=== PATIENT | female | born 1990 | race Two or more races ===

== ENCOUNTER 2024-08-22 11:19 | Emergency (ER) | payer BC, SELFPAY ==
--- NOTE | 2024-08-22 11:46 | XR_ITS ---
Examination: CT abdomen and pelvis without contrast. Coronal 3-D reconstructions. Sagittal 2-D reconstructions. Date and time of exam:August 22, 2024 1404 hours INDICATIONS: Right-sided flank pain beginning 3 days ago CTDI: vol (mGy): 7.79 DLP: (mGycm): 403 Technique: Axial images of the abdomen have been obtained, 3 mm slice thickness Intravenous contrast material has not been administered. Low dose protocols were performed. One or more of the following dose reduction techniques were used; automated exposure control, adjustment of the mA and/or KV according to patient size, use of iterative reconstruction technique. Findings: 21 mm low-density right lobe liver lesion image 66 No gallstones Spleen not enlarged No pancreatic or adrenal mass No renal or ureteral calculi, no hydronephrosis Normal appendix No bowel obstruction Anteverted uterus Mild free fluid in the pelvis Left adnexal mass containing a small area of fat, the mass measuring 3.4 cm IMPRESSION: 21 mm low-density right lobe liver lesion, recommend hepatobiliary sonography follow-up No renal or ureteral calculi, no hydronephrosis Fat-containing left adnexal mass 3.4 cm with mild free fluid in the pelvis, recommend pelvic sonography follow-up
[2024-08-22 11:48] VITALS: BP 132/84; PULSE 87; RESP 17; TEMP 37.1; O2SAT 99; BMI 24.3
[2024-08-22 12:24] LABS: Basophils % (Auto) 0 % (0-2.5); Eosinophils # (Auto) 0.1 Thou/mm3 (0.0-0.5); Eosinophils % (Auto) 1 % (0-10); Hematocrit 39.8 % (36.0-46.0); Hemoglobin 13.4 g/dL (12.0-16.0); Immature Granulocytes % (Auto) 0 % (0-0); Immature Granulocytes Auto 0.01 Thou/mm3 (0.00-0.00); Lymphocytes % (Auto) 30 % (10-50); Mean Corpuscular HGB Conc 33.7 g/dl (31.0-37.0); Mean Corpuscular Hemoglobin 30.3 pg (25.0-35.0); Mean Corpuscular Volume 90 fL (80-100); Monocytes # (Auto) 0.4 Thou/mm3 (0.0-0.8); Monocytes % (Auto) 6 % (0-12); Neutrophils # (Auto) 4.2 Thou/mm3 (1.8-7.7); Neutrophils % (Auto) 63 % (37-80); Nucleated Red Blood Cell % 0 /100 WBC (0); Platelet Count 319 Thou/mm3 (140-440); RDW Standard Deviation 50.6 fL (36.4-46.3); Red Blood Count 4.42 Miln/mm3 (4.00-5.20); White Blood Count 6.8 Thou/mm3 (3.6-11.0)
[2024-08-22 12:33] LABS: Alanine Aminotransferase 15 U/L (10-49); Albumin, Serum 4.9 gm/dL (3.5-5.0); Albumin/Globulin Ratio 1.9 (1.2-2.2); Alkaline Phosphatase 54 U/L (46-116); Anion Gap 7 (7-16); Aspartate Amino Transferase 20 U/L (0-34); BUN/Creatinine Ratio 8 Ratio (12-20); Bilirubin,Total 0.5 mg/dL (0.3-1.2); Blood Urea Nitrogen 6 mg/dL (9-23); Calcium 9.6 mg/dL (8.3-10.6); Calcium (Corrected) 9.6 mg/dL (8.5-10.1); Carbon Dioxide 26.7 mMol/L (20.0-31.0); Chloride 104 mMol/L (98-107); Creatinine (Component) 0.8 mg/dL (0.6-1.3); Estimated Creatinine Clearance 88.3 mL/min (>60); Globulin 2.6 gm/dL (2.3-3.5); Glucose 96 mg/dL (74-106); Lipase 39 U/L (12-53); Osmolality,Calculated 273 (275-295); Potassium 4.1 mMol/L (3.4-5.1); Sodium 138 mMol/L (136-145); Total Protein 7.5 gm/dL (5.7-8.2); eGFR > 60 See Note
[2024-08-22 12:35] LABS: Collection Type, Urine Clean Catch
[2024-08-22 13:04] LABS: HCG Qualitative,Urine Negative
[2024-08-22 13:08] LABS: Bilirubin,Urine Negative (Negative); Blood,Urine 2+ (Negative); Color,Urine Yellow (Lt Yel-Yel); Glucose, Urine Negative (Negative); Ketones,Urine Negative (Negative); Leukocyte Esterase,Urine Positive (Negative); Nitrite,Urine Negative (Negative); PH,Urine 7.5 (5.0-7.0); Protein,Urine Negative (Neg - Trace); RBC,Urine 13 /hpf (0-3); Specific Gravity,Urine 1.007 (1.001-1.035); Squamous Epithelial Cell,Urine 3 /hpf (0-5); Urobilinogen,Urine Negative mg/dL (0.0-1.0); WBC,Urine 37 /hpf (0-5)
[2024-08-22 13:26] LABS: Clarity,Urine Hazy (Clear/Hazy); Culture Indicated,Urine Yes
--- NOTE | 2024-08-22 14:26 | XR_ITS ---
Examination: Abdomen sonogram, Limited Date and time of exam: August 22, 2024 1507 hrs. Indications: Onset pelvic pain today, focal liver lesion on CT examination of the abdomen today Technique: Real-time celeste scale transabdominal sonographic images of the upper abdomen obtained. Findings: Normal gallbladder Normal common bile duct 0.2 cm Pancreatic head 2.3 cm Liver 9.7 cm smooth contour hyperechoic mass 22 mm Normal hepatopedal portal venous flow Patent IVC Impression: Normal gallbladder Small probable liver hemangioma, recommend 3 month follow-up hepatobiliary sonography
--- NOTE | 2024-08-22 14:26 | XR_ITS ---
Examination: Pelvic ultrasound, transabdominal, complete Technique: Transabdominal ultrasound of the pelvis performed using grayscale imaging Date and time of exam: August 22, 2024 1450 hrs. Indications: Onset pelvic pain today Findings: Uterus 10.0 x 6.3 x 6.9 cm Endometrial stripe 2.7 cm No intrauterine gestation or uterine mass Right ovary 3.1 x 2.6 cm arterial flow Left ovary 3.5 x 3.0 cm arterial flow, solid left ovarian mass 3.1 x 3.4 x 3.3 cm Impression: Thickened endometrium Solid vascular left ovarian mass, consider early ovarian tumor, complex cyst Recommend short-term follow-up transvaginal pelvic sonography
--- NOTE | 2024-08-22 16:55 | PRELIM_ITS ---
Right upper quadrant abdominal ultrasound. August 22, 2024 at 1507 hours Clinical history: Possible liver lesion.Technique: Grayscale and color flow images of the right upper quadrant are provided. He patic and portal veins were also imaged with color flow images.Comparison: No prior study is availabl e for comparison. Findings:The liver appears to demonstrate heterogeneous echotexture. There is a hyp erechoic lesion within the right lobe of the liver without vascularity, measuring 1.8 x 1.8 x 2.2 cm. No intrahepatic biliary ductal dilatation. The main portal vein is patent and demonstrates hepatopet al flow. No gallbladder calculus, wall thickening or pericholecystic fluid is demonstrated. Sonograph ic Yañez sign is negative as per the technologist's note. The common bile duct is normal in caliber at 2.4 mm. The pancreas is unremarkable to the extent visualized (limited evaluation due to bowel gas shadowing). The visualized inferior vena cava is patent.Impression:1. Heterogeneous echotexture of t he liver, which may be related to fatty infiltration/ hepatic parenchymal disease.2. Hyperechoic lesi on within the liver as described, which may represent a hemangioma.3. No sonographic evidence of chol elithiasis, acute cholecystitis or biliary obstruction. Report Electronically Signed By: Rohan Lawrence 08/22/2024 4:54:38 PM [EST]
--- NOTE | 2024-08-22 17:56 | PD.EDFMALE ---
ED Female Urogenital RME/HPI General Chief complaint: Urogenital-Female Stated complaint: RIGHT FLANK PAIN x 2 DAYS Time Seen by Provider: 08/22/24 11:27 Arrival date/time: 08/22/24 11:19 33-year-old female with history of anemia presents the emergency department complains of right flank pain ongoing for the last 2 days patient ports no chest pain shortness of breath headache dizziness weakness Limitations: no limitations Related Data Home Medications ?Medication ?Instructions ?Recorded ?Confirmed folic acid 0.8 mg capsule 0.8 mg PO QDAY 10/25/18 10/25/18 vitamins-iron fumarate 27 1 tab PO QDAY 10/25/18 10/25/18 mg iron-folic acid 0.8 mg tablet ( Vitamin) Previous Rx's ?Medication ?Instructions ?Recorded psyllium 1 tbsp PO QDAY #300 grams 06/03/22 ciprofloxacin HCl 500 mg tablet 500 mg PO BID 7 days #14 tabs 08/22/24 ibuprofen 600 mg tablet 600 mg PO Q6H #30 tabs 08/22/24 Allergies Allergy/AdvReac Type Severity Reaction Status Date / Time No Known Allergies Allergy Unverified 08/22/24 11:21 Review of Systems Review of Systems Systems Reviewed: All systems reviewed, normal except as documented Constitutional Constitutional: Reports system reviewed and no additional complaints, except as documented, Denies fever(s) and Denies headache(s) Eyes Eyes: Reports system reviewed and no additional complaints, except as documented and Denies blurry vision ENT Ears, Nose, Mouth, and Throat: Reports system reviewed and no additional complaints, except as documented, Denies headache(s), Denies nasal congestion and Denies nasal discharge Cardiovascular Cardiovascular: Reports system reviewed and no additional complaints, except as documented, Denies chest pain and Denies dyspnea Respiratory Respiratory: Reports system reviewed and no additional complaints, except as documented, Denies chest congestion, Denies cough and Denies dyspnea Gastrointestinal Gastrointestinal: Reports system reviewed and no additional complaints, except as documented and Denies abdominal pain Genitourinary Genitourinary: Reports system reviewed and no additional complaints, except as documented and Reports other (Right flank pain, dysuria) Integumentary/Breasts Skin/Breast: Reports system reviewed and no additional complaints, except as documented and Denies rash Neurologic Neurologic: Reports system reviewed and no additional complaints, except as documented, Reports as per HPI and Denies headache(s) Past Medical History Past Medical History NEUROLOGIC: Negative Neurological Disorders CARDIAC: Negative Cardiac Disorders or Congestive Heart Failure RESPIRATORY: Negative Chronic Obstructive Pulmonary Disease (COPD) GASTROINTESTINAL: Negative Gastrointestinal Disorders GENITOURINARY: Negative Genitourinary Disorders or Renal Disease REPRODUCTIVE: Negative Breast Cancer or Pelvic Inflammatory Disease MUSCULOSKELETAL: Negative Musculoskeletal Disorders ENDOCRINE: Negative Endocrine Disorders, Diabetes Mellitus Type 1 or Diabetes Mellitus Type 2 HEMATOLOGIC: Negative Blood Disorders OTHER HISTORY: Negative Hospitalization, Autoimmune Disease, Developmental Delay, Falls, Blood Transfusions, Blood Transfusion Reaction, Anesthesia Reactions, Organ Transplant, Chemotherapy, Hyperbaric Therapy, Human Immunodeficiency Virus (HIV), Clostridium Difficile or Breast Cancer Family History FAMILY HISTORY: Positive Family Psychiatric Problems (BROTHER- HOMELESS) and Family Cardiac Disorders (mother HTN); Negative Family Respiratory Disorders, Family Gastrointestinal Problems, Family Cancer, Family Surgery or Family Anesthesia Reaction Surgical History SURGICAL: Negative Cardiac Surgery, Endocrine Surgery, Ear Surgery, Abdominal Surgery, Joint Replacement, Mastectomy, Section or Organ Transplant Social History SMOKING STATUS: Never smoker ED Exam General Limitations: Present no limitations General appearance: Present alert and in no apparent distress Head Head exam: Present atraumatic Eye Eye exam: Present normal appearance, PERRL and EOMI; Absent conjunctival injection ENT ENT exam: Present normal exam, normal oropharynx and mucous membranes moist Neck Neck exam: Present normal inspection, full ROM and trachea midline Chest Chest inspection: Present normal inspection and symmetric chest wall rise Respiratory Respiratory exam: Present normal lung sounds bilaterally; Absent respiratory distress Cardiovascular Cardiovascular exam: Present regular rate, normal rhythm and normal heart sounds Abdominal Exam Abdominal exam: Present soft and normal bowel sounds; Absent distention, tenderness, guarding, rebound, rigidity, Yañez's sign, Rovsing's sign or tenderness at McBurney's Point Abdominal tenderness: Absent RUQ or RLQ Extremities Exam Extremities exam: Present normal inspection and full ROM Back Exam Back exam: Present normal inspection and full ROM Neurological Exam Neurological exam: Present alert, oriented X3 and CN II-XII intact Psychiatric Psychiatric exam: Present normal affect and normal mood Skin Skin exam: Present warm, dry, intact and normal color Course Quality Measures none Orders Category Date Time Status CT abdomen pelvis wo con Stat Exams 08/22/24 11:46 Completed US gall bladder Stat Exams 08/22/24 14:26 Completed US pelvic complete Stat Exams 08/22/24 14:26 Completed CBC Stat Lab 08/22/24 11:53 Completed Comprehensive Metabolic Panel Stat Lab 08/22/24 11:53 Completed HCG Qualitative,Urine Stat Lab 08/22/24 12:00 Completed Lipase Stat Lab 08/22/24 11:53 Completed UA, C/S IF [Urinalysis, C/S if Indicated] Stat Lab 08/22/24 12:00 Completed Urine Culture Stat Lab 08/22/24 12:00 Received Vital Signs Vital signs: Vital Signs Temperature 98.8 F 08/22/24 11:48 Pulse Rate 87 08/22/24 11:48 Respiratory Rate 17 08/22/24 11:48 Blood Pressure 132/84 H 08/22/24 11:48 Pulse Oximetry (%) 99 08/22/24 11:48 Oxygen Delivery Method Room Air 08/22/24 11:48 O2 saturation 99% on room air within normal limits Urogenital - Female MDM Narrative MDM Narrative:: 33-year-old female with history of anemia presents the emergency department complains of right flank pain ongoing for the last 2 days patient ports no chest pain shortness of breath headache dizziness weakness On exam patient does not appear ill or toxic patient's not appear in acute distress Lab work as well as CT scan obtained Lab work is unremarkable CT scan reviewed based on the patient's CT scan ultrasound was ordered I reviewed the patient's CT as well as ultrasound with her gave her copy of her ultrasound reports range her PCP for further evaluation have outpatient MRI of her liver and further follow-up with 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 Patient discharged home in no distress to follow-up with primary care doctor in the next 24 to 48 hours and for any worsening symptoms to return to the ER immediately Patient data External records reviewed:: [facility] previous records Clinical information provided by:: patient Social determinants that could affect healthcare access:: none Patient has the following chronic illnesses:: anemia How is presenting disease/condition affected by chronic disease/condition?: no chronic disease Evaluation data The following diagnostics were reviewed and interpreted by me:: lab results and radiology exam(s) Lab and/or radiology exams considered but not ordered:: Labs radiology obtained Interpretation Summary: Reviewed by me Medications / Prescriptions Medications or Prescriptions considered but not ordered:: Given Medication administrations:: Given Consultations Consultation(s) initiated? (list below): No Diagnosis Urogenital Female Differential Diagnosis: urinary tract infection, cervicitis and vaginitis Most likely diagnosis given after review of the tests above:: UTI, ovarian cyst, liver lesion Admission Indicated Admission indicated?: not indicated Admission Request Was there a request for admission?: No Disposition Plan Disposition Plan: Discharge Discharge Attestation Discharge Attestation: The patient and all family members were given an opportunity to ask questions and understood the discharge instructions. Discharge instructions specifically effects, indications for sooner follow up or return to the emergency department, and the expected course of current diagnosis. Patient condition: Stable Discharge Plan Plan Patient Disposition: HOME (Self Care) Disposition Comment: Stable Prescriptions/Referrals Prescriptions/Med Rec: New ciprofloxacin HCl 500 mg tablet 500 mg PO BID 7 Days Qty: 14 0RF ibuprofen 600 mg tablet 600 mg PO Q6H Qty: 30 0RF No Action vit-iron fum-folic ac [ Vitamin] 27 mg iron- 0.8 mg Tablet 1 tab PO QDAY folic acid 0.8 mg Capsule 0.8 mg PO QDAY psyllium Powder 1 tbsp PO QDAY Qty: 300 0RF Rx Instructions: mix into at least 8 oz of water or juice before administering Referrals: Atif Ragland MD [Primary Care Provider] - 08/23/24 Problem List Clinical Impression: UTI (urinary tract infection), Ovarian cyst, Lesion of liver Patient/Caregiver Discharge Instructions Education Materials: Ovarian Cysts Additional Instructions: Please follow up with your primary care doctor in the next 24-48hrs for any worsening symptoms return here immediately Please bring copy of ultrasound reports your PCP for further evaluation and referral Print Language: Tamazight Stand Alone Forms: Pamela Award Info., Patient Portal Info Letter JOSE D/ALOK Supervising Physician JOSE D/ALOK Supervising Physician: Dr Ramos
== END 2024-08-22 18:47 | disposition home or self-care (01) ==
PROVIDERS: Nurse Practitioner Primary Care; Emergency Provider Emergency Medicine; PCP Internal Medicine
DX: N39.0 Urinary tract infection, site not specified (principal); N83.202 Unspecified ovarian cyst, left side; K76.9 Liver disease, unspecified
CPT/HCPCS: 36415; 74176; 76705; 76856; 80053; 81001; 81025; 83690; 85025; 87077; 87086; 87186; 99284

== ENCOUNTER → 2024-09-07 | Outpatient (CLI) | payer BC, SELFPAY ==
[2024-09-07 11:29] LABS: Basophils % (Auto) 1 % (0-2.5); Eosinophils % (Auto) 0 % (0-10); Hematocrit 40.3 % (36.0-46.0); Hemoglobin 13.9 g/dL (12.0-16.0); Immature Granulocytes % (Auto) 0 % (0-0); Immature Granulocytes Auto 0.01 Thou/mm3 (0.00-0.00); Lymphocytes # (Auto) 1.6 Thou/mm3 (1.0-4.8); Lymphocytes % (Auto) 24 % (10-50); Mean Corpuscular HGB Conc 34.5 g/dl (31.0-37.0); Mean Corpuscular Hemoglobin 30.9 pg (25.0-35.0); Mean Corpuscular Volume 90 fL (80-100); Monocytes # (Auto) 0.4 Thou/mm3 (0.0-0.8); Monocytes % (Auto) 6 % (0-12); Neutrophils # (Auto) 4.5 Thou/mm3 (1.8-7.7); Neutrophils % (Auto) 68 % (37-80); Nucleated Red Blood Cell % 0 /100 WBC (0); Platelet Count 323 Thou/mm3 (140-440); RDW Standard Deviation 45.4 fL (36.4-46.3); White Blood Count 6.5 Thou/mm3 (3.6-11.0)
[2024-09-07 11:41] LABS: Glucose Estimated Average 100 mg/dL (80-131); Hemoglobin A1C 5.1 % Hgb (4.8-6.0)
[2024-09-07 11:56] LABS: Alanine Aminotransferase 17 U/L (10-49); Albumin, Serum 5.4 gm/dL (3.5-5.0); Alkaline Phosphatase 59 U/L (46-116); Anion Gap 9 (7-16); Aspartate Amino Transferase 19 U/L (0-34); BUN/Creatinine Ratio 18 Ratio (12-20); Bilirubin,Total 0.8 mg/dL (0.3-1.2); Blood Urea Nitrogen 14 mg/dL (9-23); Calcium 10.6 mg/dL (8.3-10.6); Calcium (Corrected) 10.6 mg/dL (8.5-10.1); Carbon Dioxide 23.5 mMol/L (20.0-31.0); Cardiac Risk Estimate 2.3 RATIO (3.7-5.6); Chloride 103 mMol/L (98-107); Cholesterol 185 mg/dL (132-200); Creatinine (Component) 0.8 mg/dL (0.6-1.3); Globulin 2.7 gm/dL (2.3-3.5); Glucose 91 mg/dL (74-106); HDL Cholesterol 81 mg/dL (40-60); LDL Cholesterol,Calculated 96 mg/dL (0-130); Osmolality,Calculated 270 (275-295); Potassium 4.7 mMol/L (3.4-5.1); Sodium 135 mMol/L (136-145); Thyroid Stimulating Hormone 1.92 uIU/mL (0.55-4.78); Total Protein 8.1 gm/dL (5.7-8.2); Triglycerides 38 mg/dL (30-150); eGFR > 60 See Note
[2024-09-07 12:41] LABS: Ferritin 53 ng/mL (7.3-270.7); Iron 162 mcg/dL (50-170); Percent Iron Saturation 47 % (20-55); Total Iron Binding Capacity 340 mcg/dL (250-425); Unsaturated Iron Binding 178 (225-295)
== END | disposition home or self-care (01) ==
PROVIDERS: PCP Internal Medicine; Referring Provider Internal Medicine; Visit Provider Internal Medicine
DX: Z00.00 Encounter for general adult medical examination without abnormal findings (principal); D64.9 Anemia, unspecified; E78.89 Other lipoprotein metabolism disorders; K76.9 Liver disease, unspecified; N83.202 Unspecified ovarian cyst, left side
CPT/HCPCS: 36415; 80053; 80061; 82728; 83036; 83540; 83550; 84443; 85025

== ENCOUNTER 2024-10-25 08:51 | Outpatient (RCR) | payer BC, SELFPAY ==
[2024-10-25 09:19] LABS: HCG Qualitative,Urine Negative
--- NOTE | 2024-10-25 10:00 | XR_ITS ---
Examination: CHARLI, hepatobiliary radioisotope scan Gallbladder ejection fraction study. Date and time of exam: October 25, 2024 0919 hrs. Indications: Sharp abdominal pain beginning 4 months ago Technique: 5.7 mCi of 99M Hepatolite administered. Serial imaging then obtained from immediate through 60 minutes. 1.4 mcg selective catheter Kinevac administered for gallbladder ejection fraction study. Findings: Radioisotope activity within the liver is reasonably homogenous. Gallbladder, common bile duct small bowel activity noted Impression: Gallbladder activity Abnormal gallbladder ejection fraction, 10%, normal greater than 35%
== END 2024-10-30 23:59 | disposition home or self-care (01) ==
LOC: SNUC 08:51
PROVIDERS: PCP Internal Medicine; Referring Provider Internal Medicine; Visit Provider Internal Medicine
DX: R93.2 Abnormal findings on diagnostic imaging of liver and biliary tract (principal); Z32.00 Encounter for pregnancy test, result unknown
CPT/HCPCS: 78227; 81025; A9537; J2805

== ENCOUNTER → 2024-11-18 | Outpatient (CLI) | payer BC, SELFPAY ==
--- NOTE | 2024-11-18 13:30 | XR_ITS ---
Examination: Transvaginal ultrasound of the pelvis, complete Technique: Transvaginal sonographic images pelvis performed using celeste scale imaging Exam date and time: November 18, 2024 1331 hours INDICATIONS: Left adnexal pain pelvic pain 3 months, pelvic sonogram August 22, 2024 solid left ovarian mass 3.1 x 3.4 x 3.3 cm FINDINGS: Uterus 10.6 cm endometrium 0.76 cm No uterine mass or intrauterine gestation Mild fluid in the cul-de-sac Right ovary 2.8 cm arterial flow Left ovary 2.9 cm arterial flow, left ovarian mass 3.2 x 2.4 x 2.1 cm IMPRESSION: Left ovarian mass 3.2 x 2.4 x 2.1 cm, differential would include ovarian tumor, recommend MRI pelvis follow-up pre and postcontrast.
== END | disposition home or self-care (01) ==
PROVIDERS: PCP Internal Medicine; Referring Provider Internal Medicine; Visit Provider Internal Medicine
DX: N83.8 Other noninflammatory disorders of ovary, fallopian tube and broad ligament (principal)
CPT/HCPCS: 76830

== ENCOUNTER 2024-12-08 08:27 | Emergency (ER) | payer BC, SELFPAY ==
--- NOTE | 2024-12-08 | XR_ITS ---
Examination: MRI pelvis with intravenous contrast. MRI pelvis without intravenous contrast. Date and time of exam: December 08, [address] abdomen pelvis August 22, 2024 Indications: Diagnosis left adnexal mass 3.4 cm fat-containing with free fluid in the pelvis on CT pelvis August 22, 2024 Technique: Multiple axial, sagittal and coronal sections of the pelvis obtained. Transverse images, TR 6020, TE 107. T1 weighted transverse images, TR 582, TE 9.5. T2-weighted sagittal images, TR 4000, TE 105. T2-weighted sagittal images, TR 4000, TE 5. Coronal images, TR 4210, TE 107. Axial and coronal images are obtained post 13 cc intravenous injection, gadolinium. 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
[2024-12-08 08:36] VITALS: BP 125/89; PULSE 94; RESP 16; TEMP 36.7; O2SAT 98; BMI 24.7
[2024-12-08 09:44] LABS: Collection Type, Urine Clean Catch
--- NOTE | 2024-12-08 09:46 | PD.EDABDPN ---
ED Abdominal Pain RME/HPI General Chief Complaint: Abdominal Pain Stated complaint: LEFT ABD PAIN WITH SWELLING; HX OVARIAN CYST/MASS Time seen by provider: 12/08/24 08:35 Arrival date/time: 12/08/24 08:27 The patient is a 34-year-old female evaluated in the emergency department for worsening left lower pelvic pain over the past three days. The pain is associated with mild nausea and vomiting, but she denies fever. She reports a known history of an ovarian tumor/cyst on the left side, with follow-up established through her primary care provider. The patient believes her current symptoms are likely related to this known ovarian mass. She denies urinary symptoms. A prior transvaginal ultrasound demonstrated a 3.5 cm ovarian mass. Limitations: no limitations Related Data Home Medications ?Medication ?Instructions ?Recorded ?Confirmed folic acid 0.8 mg capsule 0.8 mg PO QDAY 10/25/18 10/25/18 vitamins-iron fumarate 27 1 tab PO QDAY 10/25/18 10/25/18 mg iron-folic acid 0.8 mg tablet ( Vitamin) Previous Rx's ?Medication ?Instructions ?Recorded psyllium 1 tbsp PO QDAY #300 grams 06/03/22 ibuprofen 600 mg tablet 600 mg PO Q6H #30 tabs 08/22/24 Allergies Allergy/AdvReac Type Severity Reaction Status Date / Time No Known Allergies Allergy Unverified 12/08/24 08:31 Review of Systems Review of Systems Systems Reviewed: All systems reviewed, normal except as documented Narrative Review of Systems: Gen: No fever, no chills, no weight loss EYES: No discharge, no visual changes, no pain HEENT: No ear pain, no congestion, no sore throat PULM: No shortness of breath, no cough, no congestion CV: No chest pain, no dyspnea on exertion, no palpitations GI: No nausea, no vomiting, no diarrhea, +left sided pelvic pain pain, no constipation : No frequency, no urgency,? no dysuria Musc/skel: No joint pain, no back pain Skin: No rash? Psyc: No hallucinations, no depression Heme/Lymph: No easy bleeding or bruising tendencies Neuro: No weakness, no headache ED Exam General Limitations: Present no limitations General appearance: Present alert and in no apparent distress Head Head exam: Present atraumatic Eye Eye exam: Present normal appearance, PERRL and EOMI ENT ENT exam: Present normal exam, normal oropharynx and mucous membranes moist Neck Neck exam: Present normal inspection, full ROM and trachea midline Chest Chest inspection: Present normal inspection and symmetric chest wall rise Respiratory Respiratory exam: Present normal lung sounds bilaterally Cardiovascular Cardiovascular exam: Present regular rate, normal rhythm and normal heart sounds Abdominal Exam Abdominal exam: Present soft and normal bowel sounds; Absent distention, tenderness or guarding Abdominal tenderness: Present LLQ and mild Extremities Exam Extremities exam: Present normal inspection and full ROM Back Exam Back exam: Present normal inspection and full ROM Neurological Exam Neurological exam: Present alert, oriented X3 and CN II-XII intact Psychiatric Psychiatric exam: Present normal affect and normal mood Skin Skin exam: Present warm, dry, intact and normal color Course Course Course Narrative: In the emergency department, a complete blood count (CBC), comprehensive metabolic panel (CMP), urine analysis, and serum hCG were ordered. MRI of the pelvis was also obtained for further evaluation. I reviewed the patient?s previous CT scan and transvaginal ultrasound, which confirmed the presence of a 3.5 cm left ovarian mass. The patient was monitored during her stay, and no acute complications were noted. Quality Measures none Orders Category Date Time Status MRI Screening NOW Care 12/08/24 09:13 Completed MR pelvis wo/w con Stat Exams 12/08/24 Completed CBC Stat Lab 12/08/24 09:30 Completed Comprehensive Metabolic Panel Stat Lab 12/08/24 09:30 Completed HCG Qualitative,Urine Stat Lab 12/08/24 09:29 Completed Lipase Stat Lab 12/08/24 09:30 Completed Urinalysis Stat Lab 12/08/24 09:29 Completed Vital Signs Vital signs: Vital Signs Temperature 98.1 F 12/08/24 08:36 Pulse Rate 94 12/08/24 08:36 Respiratory Rate 16 12/08/24 08:36 Blood Pressure 125/89 H 12/08/24 08:36 Pulse Oximetry (%) 98 12/08/24 08:36 Oxygen Delivery Method Room Air 12/08/24 08:36 Abdominal Pain MDM MDM Narrative MDM Narrative:: The MRI findings were consistent with a dermoid tumor. The patient was monitored throughout her ED stay and remained hemodynamically stable with no acute complications. Discharge Plan: Patient discharged home in stable condition. Diagnosis: Left ovarian dermoid tumor. Advised to follow up with primary care provider for further evaluation and referral to gynecology as indicated. Return to the emergency department for any new or worsening symptoms, including abdominal pain, fever, or changes in bowel or urinary habits. Patient data External records reviewed:: [facility] previous records Clinical information provided by:: patient Social determinants that could affect healthcare access:: none Patient has the following chronic illnesses:: no How is presenting disease/condition affected by chronic disease/condition?: no chronic disease Evaluation data The following diagnostics were reviewed and interpreted by me:: lab results and radiology exam(s) Lab and/or radiology exams considered but not ordered:: no Interpretation Summary: Examination: MRI pelvis with intravenous contrast. MRI pelvis without intravenous contrast. Date and time of exam: December 08, [address] abdomen pelvis August 22, 2024 Indications: Diagnosis left adnexal mass 3.4 cm fat-containing with free fluid in the pelvis on CT pelvis August 22, 2024 Technique: Multiple axial, sagittal and coronal sections of the pelvis obtained. Transverse images, TR 6020, TE 107. T1 weighted transverse images, TR 582, TE 9.5. T2-weighted sagittal images, TR 4000, TE 105. T2-weighted sagittal images, TR 4000, TE 5. Coronal images, TR 4210, TE 107. Axial and coronal images are obtained post 13 cc intravenous injection, gadolinium. 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 Dictated By: Medications / Prescriptions Medications or Prescriptions considered but not ordered:: no Medication administrations:: no Consultations Consultation(s) initiated? (list below): No Diagnosis Differential diagnosis abdominal pain: abdominal pain, constipation, gastroenteritis, pancreatitis and small bowel obstruction Most likely diagnosis given after review of the tests above:: Dermoid tumor Admission Indicated Admission indicated?: not indicated Admission Request Was there a request for admission?: No Disposition Plan Disposition Plan: Discharge Discharge Attestation Discharge Attestation: The patient and all family members were given an opportunity to ask questions and understood the discharge instructions. Discharge instructions specifically effects, indications for sooner follow up or return to the emergency department, and the expected course of current diagnosis. Patient condition: Stable Discharge Plan Plan Patient Disposition: HOME (Self Care) Patient condition on transfer: Stable Prescriptions/Referrals Prescriptions/Med Rec: No Action vit-iron fum-folic ac [ Vitamin] 27 mg iron- 0.8 mg Tablet 1 tab PO QDAY folic acid 0.8 mg Capsule 0.8 mg PO QDAY ibuprofen 600 mg tablet 600 mg PO Q6H Qty: 30 0RF psyllium Powder 1 tbsp PO QDAY Qty: 300 0RF Rx Instructions: mix into at least 8 oz of water or juice before administering Referrals: Atif Ragland MD [Primary Care Provider] - In 1 week Problem List Clinical Impression: Dermoid tumor Patient/Caregiver Discharge Instructions Discharge Activity: activity as tolerated Education Materials: ED Tumor, Uncertain Cause Additional Instructions: Dermoid tumors are generally benign (non-cancerous). Some dermoid tumors can remain stable for years, while others may require surgical removal, especially if they cause symptoms. Monitor the area for any increase in size, redness, tenderness, or new symptoms. Avoid pressing or squeezing the area. Take any prescribed medications if needed for pain or inflammation. Follow-Up: Follow up with your primary care provider or specialist (such as surgery, neurology, or dermatology depending on location) as directed for further evaluation and management. Return to the Emergency Department If: You develop new or worsening pain, swelling, redness, or drainage. You experience fever, chills, or signs of infection. Any sudden changes in how the area looks or feels. Print Language: Malaysian Stand Alone Forms: Pamela Award Info., Patient Portal Info Letter JOSE D/ALOK Supervising Physician JOSE D/ALOK Supervising Physician: Dr. Sotelo
[2024-12-08 09:47] LABS: Basophils % (Auto) 0 % (0-2.5); Eosinophils # (Auto) 0.1 Thou/mm3 (0.0-0.5); Eosinophils % (Auto) 1 % (0-10); Hematocrit 40.6 % (36.0-46.0); Hemoglobin 13.7 g/dL (12.0-16.0); Immature Granulocytes % (Auto) 0 % (0-0); Lymphocytes % (Auto) 41 % (10-50); Mean Corpuscular HGB Conc 33.7 g/dl (31.0-37.0); Mean Corpuscular Hemoglobin 31.5 pg (25.0-35.0); Mean Corpuscular Volume 93 fL (80-100); Monocytes # (Auto) 0.4 Thou/mm3 (0.0-0.8); Monocytes % (Auto) 7 % (0-12); Neutrophils # (Auto) 2.5 Thou/mm3 (1.8-7.7); Neutrophils % (Auto) 51 % (37-80); Nucleated Red Blood Cell % 0 /100 WBC (0); Platelet Count 322 Thou/mm3 (140-440); RDW Standard Deviation 43.7 fL (36.4-46.3); Red Blood Count 4.35 Miln/mm3 (4.00-5.20); White Blood Count 4.8 Thou/mm3 (3.6-11.0)
[2024-12-08 09:55] LABS: Bilirubin,Urine Negative (Negative); Blood,Urine Negative (Negative); Clarity,Urine Clear (Clear/Hazy); Color,Urine Colorless (Lt Yel-Yel); Glucose, Urine Negative (Negative); Ketones,Urine Negative (Negative); Leukocyte Esterase,Urine Negative (Negative); Nitrite,Urine Negative (Negative); Protein,Urine Negative (Neg - Trace); RBC,Urine < 1 /hpf (0-3); Specific Gravity,Urine 1.008 (1.001-1.035); Squamous Epithelial Cell,Urine 1 /hpf (0-5); Urobilinogen,Urine Negative mg/dL (0.0-1.0); WBC,Urine < 1 /hpf (0-5)
[2024-12-08 09:56] LABS: HCG Qualitative,Urine Negative
[2024-12-08 10:08] LABS: Alanine Aminotransferase 14 U/L (10-49); Albumin, Serum 4.6 gm/dL (3.5-5.0); Albumin/Globulin Ratio 1.7 (1.2-2.2); Alkaline Phosphatase 54 U/L (46-116); Anion Gap 5 (7-16); Aspartate Amino Transferase 19 U/L (0-34); BUN/Creatinine Ratio 9 Ratio (12-20); Bilirubin,Total 0.5 mg/dL (0.3-1.2); Blood Urea Nitrogen 8 mg/dL (9-23); Calcium 9.8 mg/dL (8.3-10.6); Calcium (Corrected) 9.8 mg/dL (8.5-10.1); Carbon Dioxide 27.1 mMol/L (20.0-31.0); Chloride 108 mMol/L (98-107); Creatinine (Component) 0.9 mg/dL (0.6-1.3); Estimated Creatinine Clearance 77.8 mL/min (>60); Globulin 2.7 gm/dL (2.3-3.5); Glucose 96 mg/dL (74-106); Lipase 43 U/L (12-53); Osmolality,Calculated 277 (275-295); Potassium 4.4 mMol/L (3.4-5.1); Sodium 140 mMol/L (136-145); Total Protein 7.3 gm/dL (5.7-8.2); eGFR > 60 See Note
[2024-12-08 12:31] VITALS: BP 127/86; PULSE 86; RESP 16; TEMP 37.1; O2SAT 100
== END 2024-12-08 13:31 | disposition home or self-care (01) ==
PROVIDERS: Nurse Practitioner Primary Care; Emergency Provider Emergency Medicine; PCP Internal Medicine
DX: D27.1 Benign neoplasm of left ovary (principal)
CPT/HCPCS: 36415; 72197; 80053; 81001; 81025; 83690; 85025; 99285; A9579

== ENCOUNTER 2025-02-07 07:15 | Day surgery (SDC) | payer BC, SELFPAY ==
--- NOTE | 2025-02-06 08:15 | ESHP_ITS ---
RE: TESFAYE LOZA : 1990 DATE OF ADMISSION: 02/07/2025 HISTORY OF PRESENT ILLNESS: This is a 34-year-old 3 para 3 with a left adnexal mass and left lower quadrant pain, who presents for laparoscopy and removal of the left adnexal mass. ALLERGIES: NO KNOWN DRUG ALLERGIES. MEDICATIONS: None. SOCIAL HISTORY: She is . She denies any alcohol or drug use or smoking. PAST MEDICAL HISTORY: Denies. OBSTETRIC HISTORY: Three previous full-term normal vaginal deliveries. PAST SURGICAL HISTORY: Denies. FAMILY HISTORY: Denies. REVIEW OF SYSTEMS: She denies any chest pain, palpitations, cough, fever, shortness of breath or lower extremity pain. PHYSICAL EXAMINATION: VITAL SIGNS: Blood pressure 141/82, heart rate 88, respirations 19, temperature 98.6, and weight 160 pounds. HEENT: Oropharynx and sclerae are clear. LUNGS: Clear to auscultation bilaterally. HEART: Regular rate and rhythm. ABDOMEN: Nontender. No scars noted. EXTREMITIES: Nontender. SKIN: No gross rashes or lesions. NEUROLOGIC: No focal deficit. ASSESSMENT: Left adnexal mass and left lower quadrant pain. PLAN: Diagnostic laparoscopy and left ovarian cystectomy. Informed consent was obtained. The patient was made aware of the risks, complications, alternatives, and benefits of the proposed procedure and she agreed. She is aware of the risk of injury to bowel, bladder, ureters, uterus, adjacent organs, pulmonary embolism, deep vein thrombosis, injury to the vessels of the abdominal wall, hematoma, abscess, wound infection, wound dehiscence, pelvic infection, reoperation to repair injury to internal organs, anesthesia complications, the possibility that a laparotomy needs to be performed to complete the procedure or control bleeding, and the possibility that the procedure is not able to be completed due to severe adhesions or technical difficulties. DT: 23:06:26 TT: 00:50:00 Ref: [id number] - TID: [id number] MTDD
[2025-02-06 09:47] VITALS: BMI 24.3
[2025-02-06 10:45] LABS: Basophils % (Auto) 0 % (0-2.5); Eosinophils # (Auto) 0.2 Thou/mm3 (0.0-0.5); Eosinophils % (Auto) 3 % (0-10); Hematocrit 41.3 % (36.0-46.0); Hemoglobin 14.1 g/dL (12.0-16.0); Immature Granulocytes % (Auto) 0 % (0-0); Immature Granulocytes Auto 0.01 Thou/mm3 (0.00-0.00); Lymphocytes % (Auto) 36 % (10-50); Mean Corpuscular HGB Conc 34.1 g/dl (31.0-37.0); Mean Corpuscular Hemoglobin 32.3 pg (25.0-35.0); Mean Corpuscular Volume 95 fL (80-100); Monocytes # (Auto) 0.4 Thou/mm3 (0.0-0.8); Monocytes % (Auto) 7 % (0-12); Neutrophils # (Auto) 2.9 Thou/mm3 (1.8-7.7); Neutrophils % (Auto) 53 % (37-80); Nucleated Red Blood Cell % 0 /100 WBC (0); Platelet Count 319 Thou/mm3 (140-440); RDW Standard Deviation 45.6 fL (36.4-46.3); Red Blood Count 4.37 Miln/mm3 (4.00-5.20); White Blood Count 5.5 Thou/mm3 (3.6-11.0)
[2025-02-06 11:02] LABS: INR 1.1 (0.9-1.3); Partial Thromboplastin Time 29.4 Seconds (22.0-36.0); Prothrombin Time 12.2 Seconds (9.0-12.2)
[2025-02-06 11:08] LABS: Alanine Aminotransferase 13 U/L (10-49); Albumin, Serum 4.7 gm/dL (3.5-5.0); Albumin/Globulin Ratio 1.8 (1.2-2.2); Alkaline Phosphatase 59 U/L (46-116); Anion Gap 8 (7-16); BUN/Creatinine Ratio 11 Ratio (12-20); Beta HCG,Quantitative < 1 mIU/mL (<5.0); Bilirubin,Total 0.6 mg/dL (0.3-1.2); Blood Urea Nitrogen 9 mg/dL (9-23); Calcium 9.8 mg/dL (8.3-10.6); Calcium (Corrected) 9.8 mg/dL (8.5-10.1); Carbon Dioxide 25.7 mMol/L (20.0-31.0); Chloride 103 mMol/L (98-107); Creatinine (Component) 0.8 mg/dL (0.6-1.3); Globulin 2.6 gm/dL (2.3-3.5); Glucose 95 mg/dL (74-106); Osmolality,Calculated 272 (275-295); Potassium 4.7 mMol/L (3.4-5.1); Sodium 137 mMol/L (136-145); Total Protein 7.3 gm/dL (5.7-8.2); eGFR > 60 See Note
--- NOTE | 2025-02-06 15:12 | SUR.PREOP ---
Pt notified to come in at 0730 for surgery tomorrow.
[2025-02-07] VITALS (7 sets, daily range): BP systolic 115–139; BP diastolic 76–101; PULSE 87–107; RESP 13–20; TEMP 36.2–37.1; O2SAT 96–100; BMI 24.5
[2025-02-07] MEDS: RINGERS LACTATED 1000 ML 1,000 ML 30 ML IV (08:22)
--- NOTE | 2025-02-07 10:19 | SUR.PHASEI ---
1019: Pt. AAOx4, vitals stable, breathing unlabored, no complaint of pain or nausea, x2 dermabond sites to ABD CDI, peripad in place with scant amount of blood, report received from Marilin BOLAÑOS and Desiree WALKER.
--- NOTE | 2025-02-07 11:09 | SUR.PHASEII ---
1109: Pt. AAOx4, vitals stable, breathing unlabored, no complaint of pain or nausea, peripad in place with scant amount of blood, same as arrival to PACU, x2 dermabond sites to ABD CDI, no active bleed noted, gave discharge instructions to the pt. and her ride, both verbalized understanding and had no further questions. Pt. left with all personal belongings.
--- NOTE | 2025-02-07 12:14 | ESOP_ITS ---
RE: TESFAYE LOZA : 1990 DATE OF OPERATION: 02/07/2025 PREOPERATIVE DIAGNOSIS: Left ovarian cyst. POSTOPERATIVE DIAGNOSIS: Endometriosis stage I. PROCEDURES PERFORMED: Diagnostic laparoscopy and fulguration of endometriosis. SURGEON: Martir Gabriel DO [employer] EDUCATION: JON Watts ANESTHESIA: General. ANESTHESIOLOGIST: Dr. Witt ESTIMATED BLOOD LOSS: 5 mL. COMPLICATIONS: None. COUNTS: Correct. PATHOLOGY: None. FINDINGS: Superficial endometriotic implants on the posterior uterosacral ligaments and the posterior cul-de-sac as well as bilateral ovaries. Fallopian tubes appear grossly within normal limits. No involvement of the bowel. DESCRIPTION OF PROCEDURE: After proper informed consent was obtained and the patient was made aware of the risks, complications, alternatives, and benefits of the proposed procedure, she was taken to the operating room where she underwent induction of general anesthesia. She was placed in the dorsal lithotomy position. She was prepped and draped in the usual sterile fashion. A timeout was performed and a bivalve speculum was placed in the vagina. An acorn uterus manipulator was placed. Attention was then turned to the abdomen where the physician regowned and gloved and a 5 mm incision was made in the umbilical fold. With tenting up the abdomen, a Veress needle was inserted. Saline confirmed intraabdominal placement. An artificial pneumoperitoneum was created to 12 mmHg. The Veress needle was then removed and the 5 mm trocar was inserted with tenting up to the abdomen. The laparoscope connected to the video camera, was then utilized to visualize the pelvis. A second incision was made in the midline through this 5 mm incision. A 5 mm trocar was inserted under direct visualization of the laparoscope. Using the uterine manipulator and the Charles grasper, the pelvic organs were visualized and photographed and the above findings noted. Using the Harmonic scalpel 1136, fulguration was performed of the endometriotic implants, but there was no evidence of a dermoid cyst of the ovary or any cysts on the ovaries. Both ovaries appeared normal size as was the uterus. All instruments were removed from the abdomen after the carbon dioxide was removed from the peritoneal cavity. The incisions were closed with 4-0 Monocryl and covered with Dermabond and infiltrated with Marcaine 0.25% with epinephrine. Attention was then turned to the vagina where the uterine manipulator was then removed and there was no bleeding at the cervix at the end of the procedure. All instruments were removed from the vagina. She was reversed from general anesthesia in the supine position and transferred to the recovery room in stable condition. She tolerated the procedure well. Counts were correct. I discussed with the patient's the nature of her condition, the intraoperative findings, and expectation for recovery. All questions were answered. DT: 10:33:55 TT: 12:13:00 Ref: [id number] - TID: [id number] [facility]
== END 2025-02-07 11:09 | disposition home or self-care (01) ==
PROVIDERS: PCP Internal Medicine; Referring Provider Specialist; Visit Provider Specialist
PROC: (CPT 58662; principal; 2025-02-07 09:35)
DX: N80.00 Endometriosis of the uterus, unspecified (principal)
CPT/HCPCS: 58662; 36415; 80053; 84702; 85025; 85610; 85730; 86850; 86900; 86901; A4217; A4649; J0690; J1100; J2250; J2405; J2704; J3010; J3490; J7120